=== PATIENT | male | born 1960 | race American Indian/Alaskan Native ===

== ENCOUNTER → 2018-08-29 | Outpatient (CLI) | payer BC | LOC: C.LAB 08:16 | DX: I61.1 Nontraumatic intracerebral hemorrhage in hemisphere, cortical (principal) ==

== ENCOUNTER → 2018-08-29 | Outpatient (CLI) | payer BC | LOC: C.LAB 08:20 ==

== ENCOUNTER 2018-09-04 08:48 | Outpatient (CLI) | payer BC | END 2018-09-04 08:49 | disposition home or self-care (01) | LOC: C.MRIC 08:49 | DX: I61.1 Nontraumatic intracerebral hemorrhage in hemisphere, cortical (principal) ==